=== PATIENT | male | born 1985 | race Caucasian/White ===

== ENCOUNTER → 2020-05-29 11:08 | Outpatient (CLI) | payer OTHER, SELFPAY ==
[2020-06-01 16:35] LABS: COVID19 Sendout Not Detected (Not Detect)
== END ==
PROVIDERS: Visit Provider Physician Assistant
DX: Z11.59 Encounter for screening for other viral diseases (principal)
CPT/HCPCS: 87635

== ENCOUNTER → 2020-06-01 11:12 | Outpatient (ROUT) | payer OTHER, SELFPAY ==
[2020-06-01 11:36] LABS: COVID19 -Nasal RAPID Negative (Negative)
== END ==
PROVIDERS: Visit Provider Nurse Practitioner
DX: R05 Cough (principal)
CPT/HCPCS: 87635